=== PATIENT | male | born 1960 | race Two or more races ===

== ENCOUNTER 2016-06-13 13:05 | Day surgery (SDC) | payer OTHER ==
[~2016-06-13] VITALS: Ht 180.3 cm; Wt 102.1 kg
[~2016-06-13 13:05] MED LIST: AMLO10TA3 PO; Sodium Chloride LOK Flush 10 mL Syringe IV PRN; fentaNYL-PF 50 mCg/mL 2 mL Inj IVPUSH PRN
[2016-06-13 13:24] VITALS: BP 130/90; PULSE 74; RESP 16; O2SAT 96; O2SAT 99
[2016-06-13] MEDS: 0.9% Sodium Chloride 1,000 ML IV PRN ×3 (13:26→13:57)
[2016-06-13 14:05] VITALS: BP 103/69; PULSE 69; RESP 14; O2SAT 96
[2016-06-13 14:18] VITALS: BP 119/84; PULSE 78; RESP 14; O2SAT 98
--- NOTE | 2016-06-14 00:25 | ENDO ---
[address] [address] ENDOSCOPY PROCEDURE PATIENT: VICKY YOUSSEF V : 1960 MR#: [id number] ADMIT: 06/13/2016 JOB ID: [id number] DATE OF PROCEDURE: 06/13/2016 PRIMARY PROVIDER: Nayan Villarreal MD PROCEDURE: A colonoscopy. INDICATIONS: A 56-year-old male who reports for colon cancer screening. He had a negative exam a little over five years ago. Prep was fair at that time. Aggressively irrigated. He was recommended for repeat in five years. He had a full appearing ileocecal valve but biopsies were unremarkable. EQUIPMENT: Path.To-H180AL. SEDATION: 1. Versed 5 mg. 2. Fentanyl 100 mcg. COMPLICATIONS: None identified. BOWEL PREPARATION: Fair. Adequate exam. PROCEDURE INFORMATION: After the risks and benefits were explained, written and verbal informed consent was obtained. The patient was brought into the endoscopy suite and placed into the left lateral decubitus position. Sedation was achieved using the above-stated medications with the addition of oxygen via nasal cannula. A digital rectal examination was accomplished. No significant pathology appreciated. The scope was introduced into the rectum and advanced to the cecum as identified by the appendiceal orifice and ileocecal valve. The scope was slowly withdrawn to carefully examine the mucosa for any defects or lesions. Retroflexed views were avoided in the rectum. Multiple direct views were made through the dentate line for exclusion of pathology. The colon was decompressed. The scope was removed from the patient who tolerated the procedure well. FINDINGS: No significant polyps, mass lesions, or inflammatory features identified throughout. The patient had a floppy-appearing ileocecal valve. Minimal internal hemorrhoidal cushions. ENDOSCOPIC DIAGNOSIS: Visually unremarkable colonoscopy to cecum. RECOMMENDATIONS: Repeat colonoscopy in 10 years' time, sooner should symptoms warrant.
== END 2016-06-13 23:59 | disposition home or self-care (01) ==
LOC: END 13:05
PROVIDERS: ATTEND Internal Medicine Gastroenterology
DX: Z12.11 Encounter for screening for malignant neoplasm of colon (principal); I10 Essential (primary) hypertension
CPT/HCPCS: G0121; G0500; J7030